=== PATIENT | female | born 1945 | race Caucasian/White ===

== ENCOUNTER → 2021-04-11 | Outpatient (CLI) | payer MEDICARE ==
[~2021-04-11] MED LIST: ALPRAZOLAM ER0.5 MG PO; ASPIRIN E.C. 8181 MG PO; CARVEDILOL12.5 MG PO; CENTRUM ADULTS1 EACH PO; CLOPIDOGREL PO; COZAAR100 MG PO; CRESTOR 10MG10 MG PO; GOOD NEIGHBOR500 M2 PO; HCTZ 25MG25 MG PO; ISOSORBIDE MONO60 M2 PO; LEXAPRO 10MG10 MG PO; MELATIN 3 MG-11 TAB PO; NITROGLYCERIN0.4 M1 SL; PRILOSEC OTC20 MG PO; RANEXA500 M1 PO
[2021-04-11 14:11] VITALS: BP 115/63
[2021-04-11 18:49] VITALS: BP 143/61
== END ==
LOC: AMSURD 13:52
DX: E83.41 Hypermagnesemia (principal)
CPT/HCPCS: J3475